=== PATIENT | male | born 1995 | race Caucasian/White ===

== ENCOUNTER 2018-03-14 12:01 | Emergency (ER) | payer OTHER ==
[~2018-03-14] VITALS: Ht 177.8 cm; Wt 59.1 kg
[2018-03-14] MEDS ORDERED: IBUPROFEN 800 MG TABLET PO ONE (13:15)
[2018-03-14] MEDS ORDERED: POVIDONE-IODINE 10% 15 ML SOLUTION UD TP ONE (13:15)
[2018-03-14] MEDS ORDERED: LIDOCAINE 1% 10 ML VIAL INJ ONE (13:45)
[2018-03-14 14:32] VITALS: BP 111/64
== END 2018-03-14 14:35 | disposition home or self-care (01) ==
LOC: EMS 12:03
DX: L02.413 Cutaneous abscess of right upper limb (principal)
CPT/HCPCS: 10060; 99283; J3490

== ENCOUNTER 2018-03-23 13:42 | Emergency (ER) | payer OTHER ==
[~2018-03-23] VITALS: Ht 175.3 cm; Wt 65.9 kg
[2018-03-23] MEDS ORDERED: CEPH250 PO (14:24)
[2018-03-23] MEDS ORDERED: IBUP-2354 PO (14:24)
[2018-03-23 16:35] VITALS: BP 118/68
== END 2018-03-23 17:01 | disposition home or self-care (01) ==
LOC: EMS 13:42
DX: L70.9 Acne, unspecified (principal)

== ENCOUNTER 2018-09-30 14:20 | Emergency (ER) | payer OTHER ==
[~2018-09-30] VITALS: Ht 177.8 cm; Wt 65.9 kg
[2018-09-30] MEDS ORDERED: LIDOCAINE/PF 1% 2 ML VIAL IM ONE (16:45)
[2018-09-30] MEDS ORDERED: CefTRIAXone SODIUM 1 GM/VIAL IM ONE (16:45)
[2018-09-30] MEDS ORDERED: KETOROLAC TROMETHAMINE 60 MG/2 ML VIAL IM ONE (16:45)
[2018-09-30] MEDS ORDERED: SULFAMETHOX/TRIMETH DS 800-160 MG/TABLET PO ONE (16:45)
[2018-09-30 17:26] VITALS: BP 120/81
== END 2018-09-30 17:34 | disposition home or self-care (01) ==
LOC: EMS 14:26
DX: L03.113 Cellulitis of right upper limb (principal); Z48.02 Encounter for removal of sutures
CPT/HCPCS: 96372; 99283; J0696; J1885; J3490